=== PATIENT | male | born 1935 | race Caucasian/White ===

== ENCOUNTER 2022-02-27 22:22 | Emergency (ER) | payer MEDICARE ==
[~2022-02-27] VITALS: Ht 170.2 cm; Wt 61.4 kg
[2022-02-28] MEDS ORDERED: SODIUM CHLORIDE 0.9% 1,850 ML IV ONE
[2022-02-28] MEDS ORDERED: *CLINICAL-CEFTRIAXONE DOSING CLINICAL ONE
[2022-02-28] MEDS ORDERED: 0.9% SODIUM CHLORIDE 10 ML SYRINGE IVP PRN
[2022-02-28 00:23] LABS: BASOPHILS % (AUTO) 1.1 % (0.0-2.0); EOSINOPHILS % (AUTO) 0 % (1.0-6.0); HEMATOCRIT 42.9 % (41-53); HEMOGLOBIN 14.4 g/dL (13.5-17.5); LYMPHOCYTES # (AUTO) 1.2 K/uL (1.0-4.8); LYMPHOCYTES % (AUTO) 12.3 % (22.0-44.0); MEAN CORPUSCULAR HEMOGLOBIN 35.4 pg (26.0-34.0); MEAN CORPUSCULAR HGB CONC 33.7 G/dL (31.0-37.0); MEAN CORPUSCULAR VOLUME 105 fL (80-100); MONOCYTES # (AUTO) 1.6 K/uL (0.1-1.0); MONOCYTES % (AUTO) 16.3 % (2.0-9.0); NEUTROPHILS # (AUTO) 6.9 K/uL (1.8-7.7); NEUTROPHILS % (AUTO) 70.3 % (40.0-70.0); PLATELET COUNT (AUTO) 97 K/uL (150-450); RED BLOOD CELL COUNT(AUTO) 4.07 MIL/uL (4.50-5.90); RED CELL DISTRIBUTION WIDTH 15.1 % (11.5-14.5)
[2022-02-28 00:28] LABS: ANION GAP 11 mmol/L (8-16); CARBON DIOXIDE 26 mmol/L (22-29); CHLORIDE 100 mmol/L (98-107); CREATININE 1.27 mg/dL (0.60-1.30); GLUCOSE,RANDOM 100 mg/dL (70-110); POTASSIUM 3.8 mmol/L (3.5-5.1); SODIUM SERUM 137 mmol/L (136-145); UREA NITROGEN, BLOOD 18 mg/dL (7-18)
[2022-02-28] MEDS ORDERED: CefTRIAXone 1 GM/DEXTROSE 50 ML IV ONE (00:30)
[2022-02-28 00:32] LABS: GLOMERULAR FILTR. RATE CALC 54 mL/min (>60); PROTHROMBIN TIME 11.1 SEC (9.4-11.6)
[2022-02-28 00:33] LABS: ALANINE AMINOTRANSFERASE 16 U/L (12-78); ALBUMIN 3.6 g/dL (3.4-5.0); ALKALINE PHOSPHATASE 51 U/L (46-116); ASPARTATE AMINOTRANSFERASE 21 U/L (15-37); BILIRUBIN,TOTAL 0.6 mg/dL (0.1-1.0); LIPASE 101 U/L (73-393); TOTAL PROTEIN, SERUM 6.9 g/dL (6.4-8.2)
[2022-02-28 00:44] LABS: LACTIC ACID 2.5 mmol/L (0.4-2.0)
[2022-02-28 00:52] LABS: B-TYPE NATRIURETIC PEPTIDE 182 pg/mL (0-100)
[2022-02-28 02:03] LABS: COVID AG,FIA SOURCE NASAL SWAB
[2022-02-28 02:05] LABS: APPEARANCE,URINE CLEAR (CLEAR); BILIRUBIN,URINE NEGATIVE (NEGATIVE); GLUCOSE, URINE (UA) NEGATIVE (NEGATIVE); LEUKOCYTE ESTERASE ,URINE NEGATIVE (NEGATIVE); NITRATE,URINE NEGATIVE (NEGATIVE); OCCULT BLOOD,URINE NEGATIVE (NEGATIVE); PROTEIN,URINE 30-70 mg/dL (NEGATIVE); SPECIFIC GRAVITIY, URINE 1.023 (1.003-1.030); UROBILINOGEN,URINE <=1.0 mg/dL (<=1.0)
[2022-02-28 02:22] LABS: INFLUENZA TYPE A NEGATIVE FOR TYPE A (NEGATIVE); INFLUENZA TYPE B NEGATIVE FOR TYPE B (NEGATIVE)
[2022-02-28] MEDS ORDERED: ACETAMINOPHEN 500 MG TABLET PO ONE (02:30)
[2022-02-28 03:45] VITALS: BP 105/68
== END 2022-02-28 04:18 | disposition short-term general hospital (02) ==
LOC: EMS 22:23
DX: U07.1 COVID-19 (principal); A41.9 Sepsis, unspecified organism; R53.1 Weakness; R55 Syncope and collapse; I10 Essential (primary) hypertension; R09.89 Other specified symptoms and signs involving the circulatory and respiratory systems; R11.0 Nausea; M79.18 Myalgia, other site; Z98.890 Other specified postprocedural states; Z20.822 Contact with and (suspected) exposure to COVID-19
CPT/HCPCS: 99291; 71045; 87426; 80053; 81003; 83605; 83690; 83880; 84484; 85025; 85610; 87040; 87804; 36415; 93005; 96365; 96361; J0696; J7030